=== PATIENT | male | born 1965 | race Two or more races ===

== ENCOUNTER 2024-08-18 11:22 | Emergency (ER) | payer OTHER ==
[2024-08-18 11:38] VITALS: BP 138/87; PULSE 88; RESP 20; TEMP 97.4; BMI 26.5
[2024-08-18] MEDS ORDERED: IBUPROFEN 400 MG TABLET (FP) PO ONE (13:25)
[2024-08-18] MEDS ORDERED: ACETAMINOPHEN 500 MG TABLET (FP) ONE (13:25)
[2024-08-18] MEDS: IBUPROFEN 400 MG TABLET (FP) PO ONE (13:28)
[2024-08-18] MEDS: ACETAMINOPHEN 500 MG TABLET (FP) PO ONE (13:28)
== END 2024-08-18 15:51 | disposition home or self-care (01) ==
LOC: JERFT 11:22
PROC: 2W3RX1Z Immobilization of Left Lower Leg using Splint (ICD-10-PCS; principal; 2024-08-18)
DX: S82.832A Other fracture of upper and lower end of left fibula, initial encounter for closed fracture (principal); X50.1XXA Overexertion from prolonged static or awkward postures, initial encounter; Y92.410 Unspecified street and highway as the place of occurrence of the external cause
CPT/HCPCS: 73610-TC-LT-FY; 73630-TC-LT; 99283-25